=== PATIENT | male | born 1995 | race Caucasian/White ===

== ENCOUNTER 2022-04-20 08:45 | Inpatient (IN) | payer OTHER ==
[2022-04-20 10:14] VITALS: BMI 21.1
[2022-04-20] MEDS ORDERED: IBUPROFEN 600 MG TABLET (FP) PO PRN (10:45)
[2022-04-20] MEDS ORDERED: NALOXONE HCL (KLOXXADO) 8 MG SPRAY NS PRN (10:45)
[2022-04-20] MEDS ORDERED: NICOTINE 10 MG CARTRIDGE (INHALER) IH PRN (10:45)
[2022-04-20] MEDS ORDERED: ONDANSETRON *ODT* 4 MG TABLET SL PRN (10:45)
[2022-04-20] MEDS ORDERED: LOPERAMIDE HCL 2 MG CAPSULE PO PRN (10:45)
[2022-04-20] MEDS ORDERED: MAGNESIUM HYDROX 2400MG/30ML ORAL SUSPENSION 30 ML CUP PO PRN (10:45)
[2022-04-20] MEDS ORDERED: ACETAMINOPHEN 325 MG TABLET (FP) PO PRN ×2 (10:45)
[2022-04-20] MEDS ORDERED: DICYCLOMINE HCL 10 MG CAPSULE PO PRN (10:45)
[2022-04-20] MEDS ORDERED: BISMUTH SUBSALICYLATE 262 MG/15 ML BTL PO PRN (10:45)
[2022-04-20] MEDS ORDERED: hydrOXYzine PAMOATE 25 MG CAPSULE (FP) PO PRN (10:45)
[2022-04-20] MEDS ORDERED: BENZOCAINE/MENTHOL (CHLORASEPTIC ) LOZENGE MM PRN (10:45)
[2022-04-20] MEDS ORDERED: IBUPROFEN 400 MG TABLET (FP) PO PRN (10:45)
[2022-04-20] MEDS ORDERED: MAG HYDROX/AL HYDROX/SIMETH 30 ML UNIT-DOSE CUP PO PRN (10:45)
[2022-04-20] MEDS ORDERED: POLYETHYLENE GLYCOL (HEALTHYLAX) 3350 17 GM PACKET PO PRN (10:45)
[2022-04-20] MEDS ORDERED: methaDONE HCL 10 MG TABLET (FOR DETOX USE ONLY) PO ONE (10:47)
[2022-04-20] MEDS ORDERED: SULFAMETHOXAZOLE/TRIMETHOPRIM 800MG/160MG D.S. TABLET PO SCH (11:00)
[2022-04-20] MEDS ORDERED: BACITRACIN 0.9 GM PACKET TP SCH (11:00)
[2022-04-20] MEDS ORDERED: diazePAM 5 MG TABLET ONE (11:18)
[2022-04-20] MEDS ORDERED: methaDONE HCL 10 MG TABLET (FOR DETOX USE ONLY) ONE (11:19)
[2022-04-20] MEDS: diazePAM 5 MG TABLET PO SCH ×3 (11:27→22:52)
[2022-04-20 18:06] LABS: CALCIUM 8.6 mg/dL (8.5-10.1)
[2022-04-20 18:07] LABS: ALBUMIN 2.9 g/dl (3.4-5.0); BLOOD UREA NITROGEN 11.9 mg/dL (7-18)
[2022-04-20 18:09] LABS: CREATININE 0.6 mg/dL (0.55-1.3)
[2022-04-20 18:13] LABS: BILIRUBIN,TOTAL 0.2 mg/dL (0.2-1); TOT PROT 5.9 g/dl (6.4-8.2)
[2022-04-20] MEDS ORDERED: MELATONIN 5 MG TABLETS PO SCH (22:00)
[2022-04-20] MEDS ORDERED: THIAMINE HCL 100 MG TABLET (FP) PO SCH (22:00)
[2022-04-21] MEDS: diazePAM 5 MG TABLET PO SCH (06:21)
[2022-04-21 09:22] VITALS: BP 124/71; PULSE 111; RESP 18; TEMP 96.8
[2022-04-21] MEDS ORDERED: PRENATAL VITAMINS W/ FOLIC ACID TABLET (FP) PO SCH (10:00)
[2022-04-22] MEDS ORDERED: diazePAM 5 MG TABLET PO SCH (06:00)
[2022-04-22] MEDS ORDERED: methaDONE HCL 10 MG TABLET (FOR DETOX USE ONLY) PO ONE (10:00)
[2022-04-23] MEDS ORDERED: diazePAM 5 MG TABLET PO SCH (06:00)
[2022-04-24] MEDS ORDERED: diazePAM 5 MG TABLET PO ONE (06:00)
[2022-04-24] MEDS ORDERED: methaDONE HCL 10 MG TABLET (FOR DETOX USE ONLY) PO ONE (10:00)
== END 2022-04-21 09:31 | disposition left against medical advice (07) | DRG 770 ==
LOC: YASAS 08:45 → Y6N 10:54
PROVIDERS: ADMIT Allergy & Immunology; ATTEND Surgery
PROC: HZ2ZZZZ Detoxification Services for Substance Abuse Treatment (ICD-10-PCS; principal; 2022-04-20)
DX: F11.23 Opioid dependence with withdrawal (principal); F13.230 Sedative, hypnotic or anxiolytic dependence with withdrawal, uncomplicated; F14.20 Cocaine dependence, uncomplicated; F17.210 Nicotine dependence, cigarettes, uncomplicated; Z86.59 Personal history of other mental and behavioral disorders; Z56.0 Unemployment, unspecified; Z59.02 Unsheltered homelessness
CPT/HCPCS: 36415; 80053; 86780; 93005; 93010; C9803-CS; U0003; U0005